=== PATIENT | male | born 1995 | race African-American/Black ===

== ENCOUNTER 2021-01-06 08:52 | Emergency (ER) | payer MEDICAID ==
[~2021-01-06] VITALS: Ht 182.9 cm; Wt 93.0 kg
[2021-01-06] MEDS ORDERED: IBUPROFEN 600MG TABLET PO ONE (10:30)
[2021-01-06 12:03] VITALS: BP 136/84
[2021-01-06] MEDS ORDERED: HYDR-4001 MT (12:10)
[2021-01-06] MEDS ORDERED: NAPR-1176 MT (12:10)
[2021-01-06] MEDS ORDERED: HYDROCODONE/ACETAMINOPHEN 5/325MG TABLET PO ONE (12:15)
== END 2021-01-06 12:57 | disposition home or self-care (01) ==
LOC: ER 08:52
DX: S62.522A Displaced fracture of distal phalanx of left thumb, initial encounter for closed fracture (principal); J45.909 Unspecified asthma, uncomplicated; X58.XXXA Exposure to other specified factors, initial encounter; Y93.89 Activity, other specified; Y92.89 Other specified places as the place of occurrence of the external cause; Y99.8 Other external cause status
CPT/HCPCS: 29125; 73130; 99283

== ENCOUNTER 2021-03-11 09:02 | Emergency (ER) | payer MEDICAID ==
[~2021-03-11] VITALS: Ht 182.9 cm; Wt 81.0 kg
[~2021-03-11 09:02] MED LIST: HYDR-4001 MT; NAPR-1176 MT
[2021-03-11 09:05] VITALS: BP 125/89
== END 2021-03-11 10:03 | disposition left against medical advice (07) ==
LOC: ER 09:09
DX: Z53.21 Procedure and treatment not carried out due to patient leaving prior to being seen by health care provider (principal)

== ENCOUNTER 2024-07-16 09:53 | Emergency (ER) | payer MEDICAID ==
[~2024-07-16] VITALS: Ht 180.3 cm; Wt 85.0 kg
[2024-07-16 09:58] VITALS: BP 131/69; PULSE 80; RESP 16; TEMP 36.6; O2SAT 100; O2SAT 95
== END 2024-07-16 14:04 | disposition left against medical advice (07) ==
LOC: ER 09:53
DX: K08.89 Other specified disorders of teeth and supporting structures (principal); Z53.21 Procedure and treatment not carried out due to patient leaving prior to being seen by health care provider